=== PATIENT | male | born 2000 | race Caucasian/White ===

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

== ENCOUNTER 2018-02-10 08:06 | Emergency (ER) | payer OTHER ==
[2018-02-10 08:14] VITALS: BP 132/78; PULSE 80; BMI 20.9
[2018-02-10] MEDS ORDERED: ONDANSETRON 4 MG/2 ML VIAL IVPUSH ONE (09:09)
[2018-02-10] MEDS ORDERED: SODIUM CHLORIDE 1,000 ML IV STA (09:09)
[2018-02-10] MEDS ORDERED: ONDANSETRON 4 MG/2 ML VIAL ONE (09:17)
--- NOTE | 2018-02-10 09:32 | PDOC ---
History of Present Illness - General Chief Complaint: Nausea/Vomiting Stated Complaint: NAUSEA/VOMITING Time Seen by Provider: 02/10/18 08:32 History Source: Patient Exam Limitations: No Limitations - History of Present Illness Travel History: No Initial Comments: 02/10/18 09:20 17-year-old male with no past medical history presents to ED with 3 days of no appetite now with generalized abdominal cramping and vomiting 5 this morning. Patient denies fever, chills, weakness but states did have also 3 episodes of brown watery diarrhea. Patient states symptoms began after eating at [employer]. Timing/Duration: reports: intermittent Quality: reports: mild, cramping Abdominal Pain Onset Location: reports: generalized abdomen Aggravating Factors: improves with: None Alleviating Factors: improves with: None Past History - Travel Traveled outside of the country in the last 30 days: No Close contact w/someone who was outside of country & ill: No - Past Medical History Allergies/Adverse Reactions: Allergies Allergy/AdvReac Type Severity Reaction Status Date / Time No Known Allergies Allergy Verified 02/10/18 08:14 Home Medications: Ambulatory Orders Albuterol Sulfate Inhaler - [Ventolin HFA Inhaler -] 1 - 2 inh PO Q4H #1 inhaler 10/27/17 Azithromycin [Zithromax 250mg Tablets -] 250 mg PO UTDICT #6 tab 10/27/17 predniSONE [Deltasone -] 40 mg PO DAILY #6 tablet 10/27/17 COPD: No - Immunization History Immunization Up to Date: Yes - Suicide/Smoking/Psychosocial Hx Smoking Status: No Smoking History: Never smoked Number of Cigarettes Smoked Daily: 0 Hx Alcohol Use: (OCCASIONALLY) Drug/Substance Use Hx: No Substance Use Type: None Patient Lives Alone: No Lives with/in: parents Review of Systems - Review of Systems Able to Perform ROS?: No Constitutional: No: Symptoms Reported HEENTM: No: Symptoms Reported Respiratory: No: Symptoms reported Cardiac (ROS): No: Symptoms Reported ABD/GI: Yes: Diarrhea, Nausea, Vomiting, Abdominal cramping : No: Symptoms Reported Musculoskeletal: No: Symptoms Reported Integumentary: No: Symptoms Reported Neurological: No: Symptoms reported Hematologic/Lymphatic: No: Symptoms Reported *Physical Exam - Vital Signs Last Vital Signs Temp Pulse Resp BP Pulse Ox 80 18 132/78 100 02/10/18 08:08 02/10/18 08:08 02/10/18 08:08 02/10/18 08:08 - Physical Exam General Appearance: Yes: Nourished, Appropriately Dressed. No: Apparent Distress HEENT: positive: EOMI, EDGAR, Pharynx Normal (dry). negative: Pale Conjunctivae Neck: positive: Supple Respiratory/Chest: positive: Lungs Clear, Normal Breath Sounds. negative: Respiratory Distress, Accessory Muscle Use Cardiovascular: positive: Regular Rhythm, Regular Rate. negative: Murmur Gastrointestinal/Abdominal: positive: Soft. negative: Tenderness Musculoskeletal: negative: CVA Tenderness Extremity: negative: Normal Capillary Refill Integumentary: positive: Normal Color, Warm, Moist Neurologic: positive: Motor Strength 5/5 (ambulatory) Moderate Sedation - Procedure Monitoring Vital Signs: Procedure Monitoring Vital Signs Temperature Pulse Rate 80 02/10/18 08:08 Respiratory Rate 18 02/10/18 08:08 Blood Pressure 132/78 02/10/18 08:08 O2 Sat by Pulse Oximetry (%) 100 02/10/18 08:08 ED Treatment Course - LABORATORY CBC & Chemistry Diagram: 02/10/18 09:14 02/10/18 09:14 Medical Decision Making - Medical Decision Making 02/10/18 09:00 Chief complaint: Nausea vomiting diarrhea with abdominal pain 3 days Exam: Appears dehydrated no abdominal tenderness on exam. Plan: Patient ordered for labs, urine, antiemetics, IV fluids and will reevaluate. 02/10/18 12:15 Laboratory Tests 02/10/18 02/10/18 02/10/18 09:14 09:14 10:19 WBC 9.2 Hgb 17.0 H Hct 49.0 D Plt Count 223 Neutrophils % 81.9 Sodium 138 Potassium 4.0 Chloride 104 Carbon Dioxide 24 Anion Gap 11 BUN 12 Creatinine 1.0 Random Glucose 89 Calcium 10.0 Magnesium 2.3 Total Bilirubin 1.4 H AST 26 ALT 32 Alkaline Phosphatase 98 Total Protein 8.3 H Albumin 4.7 Lipase 154 Urine Ketones 1+ H Urine Blood 1+ H Urine Nitrite Negative Ur Leukocyte Esterase Negative U Marijuana (THC) Screen 02/10/18 10:19 WBC Hgb Hct Plt Count Neutrophils % Sodium Potassium Chloride Carbon Dioxide Anion Gap BUN Creatinine Random Glucose Calcium Magnesium Total Bilirubin AST ALT Alkaline Phosphatase Total Protein Albumin Lipase Urine Ketones Urine Blood Urine Nitrite Ur Leukocyte Esterase U Marijuana (THC) Screen Positive A* Patient refused Zofran and IV fluids. Patient tolerating water here in the ER. Patient be discharged home with recommendations to follow bland diet take Zofran as needed and return to ED if symptoms worsen. *DC/Admit/Observation/Transfer Diagnosis at time of Disposition: Nausea vomiting and diarrhea - Discharge Dispostion Disposition: HOME Condition at time of disposition: Improved - Referrals Referrals: Khadar Hernandez MD [Primary Care Provider] - - Patient Instructions Printed Discharge Instructions: DI for Vomiting -- Adult Additional Instructions: Please take Zofran as needed for nausea. Please avoid spicy greasy food and follow bland diet. Please also refrain from smoking marijuana as this may aggravate your symptoms. - Post Discharge Activity
[2018-02-10 10:16] LABS: BASO % 0.1 % (0-2.0); EOS % 0.8 % (0-4.5); LYMPH % 11.8 % (8-40); MCHC 34.6 g/dl (32.0-35.9); MEAN CELL VOLUME 86.6 fl (80-96); MEAN PLT VOLUME 7.8 fl (7.5-11.1); MONO % 5.4 % (3.8-10.2); NEUT % 81.9 % (42.8-82.8); PLATELET COUNT 223 K/MM3 (134-434); RBC 5.66 M/mm3 (4.00-5.60); RDW 12.2 % (11.9-15.9); WHITE BLOOD COUNT 9.2 K/mm3 (4.0-10.0)
[2018-02-10 10:24] LABS: ALBUMIN 4.7 g/dl (3.4-5.0); ANION GAP 11 MMOL/L (8-16); BLOOD UREA NITROGEN 12 mg/dL (7-18); CHLORIDE 104 mmol/L (98-107); CO2 24 mmol/L (21-32); GLUCOSE,RANDOM 89 mg/dL (74-106); LIPASE 154 U/L (73-393); MAGNESIUM 2.3 mg/dL (1.8-2.4); SODIUM 138 mmol/L (136-145); TOT PROT 8.3 g/dl (6.4-8.2)
[2018-02-10 10:25] LABS: ALK PHOS 98 U/L (45-117); BILIRUBIN,TOTAL 1.4 mg/dL (0.2-1); SGOT/AST 26 U/L (15-37); SGPT/ALT 32 U/L (13-61)
[2018-02-10 11:16] LABS: URINE APPEARANCE CLEAR; URINE BILIRUBIN NEGATIVE (<2.0 mg/dL); URINE COLOR YELLOW; URINE GLUCOSE (UA) NEGATIVE (NEGATIVE); URINE KETONE 1+ (NEGATIVE); URINE LEUK ESTERASE NEGATIVE (NEGATIVE); URINE NITRITE NEGATIVE (NEGATIVE); URINE PROTEIN NEGATIVE (NEGATIVE)
[2018-02-10 11:28] LABS: URINE MUCUS RARE
[2018-02-10 12:09] LABS: COCAINE, UR NEGATIVE ng/ml (CUTOFF=300); METHADONE, UR NEGATIVE ng/ml (CUTOFF=300); OPIATES, URI NEGATIVE ng/ml (CUTOFF=300); PHENCYCLIDINE,URINE NEGATIVE ng/ml (CUTOFF=25); URINE AMPHETAMINES NEGATIVE ng/ml (CUTOFF=500); URINE BARBITURATES NEGATIVE ng/ml (CUTOFF=200); URINE BENZODIAZEPINES NEGATIVE ng/ml (CUTOFF=200)
== END 2018-02-10 12:35 | disposition home or self-care (01) ==
LOC: JER 08:06
PROC: 3E033GC Introduction of Other Therapeutic Substance into Peripheral Vein, Percutaneous Approach (ICD-10-PCS; principal; 2018-02-10)
DX: R11.2 Nausea with vomiting, unspecified (principal)
CPT/HCPCS: 36415; 80053; 80307; 81003; 81015; 83690; 83735; 85025; 96374; 99283-25

== ENCOUNTER → 2018-06-29 | Emergency (ER) | payer OTHER ==
[2018-06-29 01:04] VITALS: BP 108/70; PULSE 100; TEMP 98.1; BMI 21.7
--- NOTE | 2018-06-29 01:33 | PDOC ---
History of Present Illness - General Chief Complaint: Psychiatric Stated Complaint: PANIC ATTACK Time Seen by Provider: 06/29/18 01:31 History Source: Patient Exam Limitations: No Limitations - History of Present Illness Initial Comments: The patient left the emergency room before I could evaluate him. Past History - Past Medical History Allergies/Adverse Reactions: Allergies Allergy/AdvReac Type Severity Reaction Status Date / Time No Known Allergies Allergy Verified 06/29/18 01:03 Home Medications: Ambulatory Orders Albuterol Sulfate Inhaler - [Ventolin HFA Inhaler -] 1 - 2 inh PO Q4H #1 inhaler 10/27/17 Azithromycin [Zithromax 250mg Tablets -] 250 mg PO UTDICT #6 tab 10/27/17 predniSONE [Deltasone -] 40 mg PO DAILY #6 tablet 10/27/17 Ondansetron HCl [Zofran] 4 mg PO TID PRN #12 tablet 02/10/18 COPD: No - Immunization History Immunization Up to Date: Yes - Suicide/Smoking/Psychosocial Hx Smoking Status: No Smoking History: Current some day smoker Have you smoked in the past 12 months: Yes Number of Cigarettes Smoked Daily: 5 Information on smoking cessation initiated: No Hx Alcohol Use: Yes Drug/Substance Use Hx: Yes Substance Use Type: None Review of Systems - Review of Systems Able to Perform ROS?: No *Physical Exam - Vital Signs Last Vital Signs Temp Pulse Resp BP Pulse Ox 98.1 F 100 H 16 108/70 100 06/29/18 00:19 06/29/18 00:19 06/29/18 00:19 06/29/18 00:19 06/29/18 00:19 Medical Decision Making - Medical Decision Making Left before medical evaluation. *DC/Admit/Observation/Transfer Diagnosis at time of Disposition: Marijuana smoker - Discharge Dispostion Disposition: LEFT BEFORE [facility] Condition at time of disposition: Fair Decision to Admit order: No - Referrals - Patient Instructions - Post Discharge Activity
--- NOTE | 2018-06-29 01:58 | PDOC ---
Attending Attestation - Resident Resident Name: Alfonso Mendosa - ED Attending Attestation I have performed the following: I have examined & evaluated the patient, The case was reviewed & discussed with the resident, I agree w/resident's findings & plan
== END | disposition left against medical advice (07) ==
LOC: JER 00:19
DX: Z53.21 Procedure and treatment not carried out due to patient leaving prior to being seen by health care provider (principal)
CPT/HCPCS: 99281-25

== ENCOUNTER 2019-12-03 13:27 | Emergency (ER) | payer OTHER ==
[2019-12-03 13:33] VITALS: BP 129/91; PULSE 97; TEMP 97.8; BMI 23.0
--- OUTSIDE RECORDS SUMMARY | 2019-12-03 13:42 | XMS ---
:2000 Author Organization [facility] Support Name Relationship Address Phone SE Unavailable Unavailable Unavailable ANNA MARIE BLACKWOOD MOTHER [address] [place] [address] Re-disclosure Warning The records that you are about to access may contain information from federally- assisted alcohol or drug abuse programs. If such information is present, then the following federally mandated warning applies: This information has been disclosed to you from records protected by federal confidentiality rules (42 CFR part 2). The federal rules prohibit you from making any further disclosure of this information unless further disclosure is expressly permitted by the written consent of the person to whom it pertains or as otherwise permitted by 42 CFR part 2. A general authorization for the release of medical or other information is NOT sufficient for this purpose. The Federal rules restrict any use of the information to criminally investigate or prosecute any alcohol or drug abuse patient.The records that you are about to access may contain highly sensitive health information, the redisclosure of which is protected by Article 27-F of the [place] Public [facility] law. If you continue you may haveaccess to information: Regarding HIV / AIDS; Provided by facilities licensed or operated by the [place] Office of Mental [facility]; or Provided by the [place] Office for People With Developmental Disabilities. If such information is present, then the following [place] mandated warning applies: This information has been disclosed to you from confidential records which are protected by state law. State law prohibits you from making any further disclosure of this information without the specific written consent of the person to whom it pertains, or as otherwise permitted by law. Any unauthorized further disclosure in violation of state law may result in a fine or senior living sentence or both. A general authorization for the release of medical or other information is NOT sufficient authorization for further disclosure. Insurance Providers Payer name Policy type Policy ID Covered Covered republican's Policy P sydnee / Coverage republican ID relationship to Rangel Inf ormation type rangel [employer] [id number] SP [id number] [facility] [id number] SP [id number] OUTPT
--- NOTE | 2019-12-03 14:33 | PDOC ---
History of Present Illness - General Chief Complaint: Cold Symptoms Stated Complaint: INFLAMED SINUSES Time Seen by Provider: 12/03/19 13:35 History Source: Patient Exam Limitations: No Limitations Past History - Travel History Traveled outside of the country in the last 30 days: No Close contact w/someone who was outside of country & ill: No - Medical History Allergies/Adverse Reactions: Allergies Allergy/AdvReac Type Severity Reaction Status Date / Time No Known Allergies Allergy Verified 12/03/19 13:29 Home Medications: Ambulatory Orders Albuterol Sulfate Inhaler - [Ventolin HFA Inhaler -] 1 - 2 inh PO Q4H #1 inhaler 10/27/17 Azithromycin [Zithromax 250mg Tablets -] 250 mg PO UTDICT #6 tab 10/27/17 predniSONE [Deltasone -] 40 mg PO DAILY #6 tablet 10/27/17 Ondansetron HCl [Zofran] 4 mg PO TID PRN #12 tablet 02/10/18 Albuterol Sulfate Inhaler - [Ventolin HFA Inhaler -] 1 - 2 inh PO Q4H #1 inhaler 12/03/19 Fluticasone Prop 0.05% Nasal [Flonase -] 1 - 2 spray NS DAILY #1 spray.pump 12/03/19 Ibuprofen 600 mg PO Q6H #30 tablet 12/03/19 Pseudoephedrine HCl 30 mg PO Q8H #21 tablet 12/03/19 COPD: No - Immunization History Immunization Up to Date: No - Psycho-Social/Smoking History Smoking Status: No Smoking History: Never smoked Have you smoked in the past 12 months: Yes Number of Cigarettes Smoked Daily: 5 - Substance Abuse Hx (Audit-C & DAST Scrn) How often the patient has a drink containing alcohol: Never Score: In Men: 4 or > Positive; In Women: 3 or > Positive: 0 Screen Result (Pos requires Nsg. Audit-10AR): Negative In the last yr the pt used illegal drug/Rx for NonMed reason: No Score: Yes response is considered Positive: 0 Screen Result (Positive result requires Nsg. DAST-10): Negative Review of Systems - Review of Systems Able to Perform ROS?: Yes Comments:: 12/03/19 14:34 CONSTITUTIONAL: Absent: fever, chills, diaphoresis, generalized weakness, malaise, loss of appetite HEENT: Present: nasal congestion, rhinorrhea Absent: throat pain, throat swelling, difficulty swallowing, mouth swelling, ear pain, eye pain, visual Changes CARDIOVASCULAR: Absent: chest pain, loss of consciousness, palpitations, irregular heart rate, peripheral edema RESPIRATORY: Absent: cough, shortness of breath, dyspnea with exertion, orthopnea, wheezing, stridor, hemoptysis GASTROINTESTINAL: Absent: abdominal pain, abdominal distension, nausea, vomiting, diarrhea, constipation, melena, hematochezia GENITOURINARY: Absent: dysuria, frequency, urgency, hesitancy, hematuria, flank pain, genital pain MUSCULOSKELETAL: Absent: myalgia, arthralgia, joint swelling SKIN: Absent: rash, itching, pallor HEMATOLOGIC/IMMUNOLOGIC: Absent: easy bleeding, easy bruising, lymphadenopathy, frequent infections ENDOCRINE: Absent: unexplained weight gain, unexplained weight loss, heat intolerance, cold intolerance NEUROLOGIC: Absent: headache, focal weakness or paresthesias, dizziness, unsteady gait, seizure, mental status changes, bladder or bowel incontinence PSYCHIATRIC: Absent: anxiety, depression, suicidal or homicidal ideation, hallucinations. Is the patient limited Portuguese proficient: No *Physical Exam - Vital Signs Last Vital Signs Temp Pulse Resp BP Pulse Ox 97.8 F 97 H 20 129/91 100 12/03/19 13:29 12/03/19 13:29 12/03/19 13:29 12/03/19 13:29 12/03/19 13:29 - Physical Exam 12/03/19 14:42 GENERAL: The patient is awake, alert, and fully oriented, in no acute distress. HEAD: Normal with no signs of trauma. EYES: Pupils equal, round and reactive to light, extraocular movements intact, sclera anicteric, conjunctiva clear. HEENT: (+) nasal congestion/No nasal congestion or rhinorrhea. No sinus Tenderness. Mucous membranes are moist. No tonsillar erythema, exudate or edema. Uvula is midline. No TM bulging, dullness or erythema EXTREMITIES: Normal range of motion, no edema. NEUROLOGICAL: Normal speech, normal gait. PSYCH: Normal mood, normal affect. SKIN: Warm, Dry, normal turgor, no rashes or lesions noted. Medical Decision Making - Medical Decision Making 12/03/19 14:43 Patient is a 19-year-old male no past medical history who presents to the ER for nasal congestion for 1 week. He states he had been taking a Z-Shamir for it however it has not been helping. He states that last night he stayed in a hotel that allowed smoking in the rooms and states his symptoms got worse. He is 4 days into his Z-Shamir. He was recently at urgent care for the same symptoms to which they gave him Augmentin. However he states that he feels they did not do anything for him so he came to the ER for evaluation. A/P: Nasal congestion On exam patient has an flare terminates to the bilateral nares Patient already on antibiotics, Will add Flonase to his regimen Recommend to ENT Discharge home I discussed the physical exam findings, ancillary test results and final diagnoses with the patient. I answered all of the patient's questions. The patient was satisfied with the care received and felt comfortable with the discharge plan and treatment plan. The Patient agrees to follow up with the primary care physician/specialist within 24-72 hours. Return precautions were given. Discharge - Discharge Information Problems reviewed: Yes Clinical Impression/Diagnosis: Sinusitis Qualifiers: Sinusitis location: unspecified location Chronicity: acute Recurrence: non- recurrent Qualified Code(s): J01.90 - Acute sinusitis, unspecified Condition: Stable Disposition: HOME - Admission No - Follow up/Referral Referrals: Daphne Hernandez MD [Primary Care Provider] - Michael Boland MD [Staff Physician] - - Patient Discharge Instructions Patient Printed Discharge Instructions: DI for Sinusitis Additional Instructions: You were seen for your nasal congestion today. You were already on the correct antibiotics. Stop taking the Z-Shamir and start taking the amoxicillin that was previously prescribed to you. Follow the dosing instructions on the package. You may use Afrin for the next 2 days to help with immediate decongestion. Do not take it for more than 2 days as you will have rebound congestion worsen which you have now. Please take the Flonase twice a day to help with the swelling. This is a steroid nasal spray. Discontinue using the other nasal sprays you have at home. Use the spray after blowing your nose. Please take ibuprofen 600 mg every 6 hours as needed for pain and swelling. May take the Sudafed every 8 hours as needed for postnasal drip. Warm steamy showers may also help your symptoms. You may also use the albuterol inhaler as needed for cough. Please follow-up with ENT this week. Referrals been provided to you. Return to the ER for any new or worsening symptoms. - Post Discharge Activity
== END 2019-12-03 14:51 | disposition home or self-care (01) ==
LOC: JERFT 13:27
DX: J01.90 Acute sinusitis, unspecified (principal)
CPT/HCPCS: 99282-25

== ENCOUNTER 2022-06-27 15:12 | Emergency (ER) | payer OTHER ==
[2022-06-27 15:26] VITALS: RESP 18; BMI 20.9
[2022-06-27] MEDS ORDERED: FAMOTIDINE 20 MG TABLET PO ONE (16:42)
[2022-06-27] MEDS ORDERED: ONDANSETRON *ODT* 4 MG TABLET SL ONE (16:42)
[2022-06-27] MEDS ORDERED: MAG HYDROX/AL HYDROX/SIMETH 30 ML UNIT-DOSE CUP PO ONE (16:42)
[2022-06-27] MEDS ORDERED: FAMOTIDINE 20 MG TABLET ONE (16:43)
[2022-06-27] MEDS ORDERED: ONDANSETRON 4 MG TABLET PO ONE (16:43)
[2022-06-27] MEDS ORDERED: MAG HYDROX/AL HYDROX/SIMETH 30 ML UNIT-DOSE CUP ONE (16:49)
[2022-06-27 17:19] VITALS: BP 116/71; PULSE 72; TEMP 97.9
== END 2022-06-27 17:20 | disposition home or self-care (01) ==
LOC: JER 15:12
DX: K52.9 Noninfective gastroenteritis and colitis, unspecified (principal)
CPT/HCPCS: 99283-25; Q0162